=== PATIENT | female | born 1990 | race Caucasian/White ===

== ENCOUNTER 2017-07-18 17:58 | Emergency (ER) | payer OTHER ==
[~2017-07-18] VITALS: Ht 157.5 cm; Wt 81.7 kg
== END 2017-07-18 20:15 | disposition home or self-care (01) ==
LOC: ER 17:58
DX: S61.305A Unspecified open wound of left ring finger with damage to nail, initial encounter (principal); S61.213A Laceration without foreign body of left middle finger without damage to nail, initial encounter; S61.217A Laceration without foreign body of left little finger without damage to nail, initial encounter; S16.1XXA Strain of muscle, fascia and tendon at neck level, initial encounter; S20.312A Abrasion of left front wall of thorax, initial encounter; V49.40XA Driver injured in collision with unspecified motor vehicles in traffic accident, initial encounter
CPT/HCPCS: 72125; 73130

== ENCOUNTER → 2018-01-01 | Outpatient (CLI) | payer SELFPAY ==
[2018-01-06 01:13] LABS: CHLAMYDIA TRACHOMATIS, NAA Negative (Negative); NEISSERIA GONORRHOEAE, NAA Negative (Negative)
== END | disposition home or self-care (01) ==
LOC: LAB 10:16 → LAB SHORT 10:16
PROVIDERS: Obstetrics & Gynecology
DX: Z36.89 Encounter for other specified antenatal screening (principal)
CPT/HCPCS: 87491; 87591; G0123

== ENCOUNTER → 2018-05-06 | Outpatient (CLI) | payer OTHER | END | disposition home or self-care (01) | LOC: LAB 09:45 → LAB SHORT 09:45 | DX: Z34.00 Encounter for supervision of normal first pregnancy, unspecified trimester (principal) | CPT/HCPCS: 87081; 87653 ==

== ENCOUNTER 2018-06-07 19:55 | Inpatient (IN) | payer OTHER ==
[~2018-06-07] VITALS: Ht 167.6 cm; Wt 0.4 kg
[2018-06-07] MEDS ORDERED: Verotin-Gr Cap1 EACH PO (20:16)
[2018-06-07 20:35] LABS: BASOPHILS ABSOLUTE AUTO 0.04 K/mm3 (0.00-0.23); BASOPHILS PERCENT AUTO 0 % (0-2); EOSINOPHILS ABSOLUTE AUTO 0.13 K/mm3 (0.00-0.68); EOSINOPHILS PERCENT AUTO 1 % (0-6); Hematocrit 37.8 % (33.0-51.0); Hemoglobin 13.2 g/dL (11.5-16.0); IMMATURE GRAN ABSOLUTE AUTO 0.09 K/mm3 (0.00-0.10); IMMATURE GRAN PERCENT AUTO 1 % (0-1); LYMPHOCYTES ABSOLUTE AUTO 3.12 K/mm3 (0.84-5.20); LYMPHOCYTES PERCENT AUTO 22 % (21-46); MONOCYTES ABSOLUTE AUTO 1.17 K/mm3 (0.16-1.47); MONOCYTES PERCENT AUTO 8 % (4-13); Mean Corpuscular HGB 30.8 pg (26.0-34.0); Mean Corpuscular HGB Conc 34.9 g/dL (31.5-36.5); Mean Corpuscular Volume 88 fL (80-100); Mean Platelet Volume 9.5 fL (9.1-12.4); NEUTROPHILS ABSOLUTE AUTO 9.35 K/mm3 (1.96-9.15); NEUTROPHILS PERCENT AUTO 67 % (41-73); Platelet Count 283 K/mm3 (150-400); RDW Coefficient Variation 12.6 % (11.7-14.2); RDW Standard Deviation 39.9 fL (35.1-46.3); Red Blood Cell Count 4.29 M/mm3 (3.80-5.20)
[2018-06-09 06:20] LABS: Hematocrit 35.5 % (33.0-51.0); Mean Corpuscular HGB 30.2 pg (26.0-34.0); Mean Corpuscular HGB Conc 33.8 g/dL (31.5-36.5); Mean Corpuscular Volume 89 fL (80-100); Platelet Count 238 K/mm3 (150-400); RDW Coefficient Variation 12.5 % (11.7-14.2); RDW Standard Deviation 40.6 fL (35.1-46.3); Red Blood Cell Count 3.98 M/mm3 (3.80-5.20); White Blood Cell Count 16.15 K/mm3 (4.00-11.30)
[2018-06-09] MEDS ORDERED: IBUP800 PO (19:10)
== END 2018-06-09 19:30 | disposition home or self-care (01) | DRG 807 ==
LOC: OBS 19:55 → BC 20:15
PROVIDERS: ADMIT Obstetrics & Gynecology
PROC: 10E0XZZ Delivery of Products of Conception, External Approach (ICD-10-PCS; principal; 2018-06-08)
PROC: 3E033VJ Introduction of Other Hormone into Peripheral Vein, Percutaneous Approach (ICD-10-PCS; 2018-06-08)
PROC: 10907ZC Drainage of Amniotic Fluid, Therapeutic from Products of Conception, Via Natural or Artificial Opening (ICD-10-PCS; 2018-06-08)
PROC: 6A550ZT Pheresis of Cord Blood Stem Cells, Single (ICD-10-PCS; 2018-06-08)
PROC: 10H07YZ Insertion of Other Device into Products of Conception, Via Natural or Artificial Opening (ICD-10-PCS; 2018-06-08)
PROC: 4A1H7CZ Monitoring of Products of Conception, Cardiac Rate, Via Natural or Artificial Opening (ICD-10-PCS; 2018-06-08)
PROC: 00HU33Z Insertion of Infusion Device into Spinal Canal, Percutaneous Approach (ICD-10-PCS; 2018-06-08)
PROC: 3E0R3BZ Introduction of Anesthetic Agent into Spinal Canal, Percutaneous Approach (ICD-10-PCS; 2018-06-08)
DX: O48.0 Post-term pregnancy (principal); Z37.0 Single live birth; Z3A.41 41 weeks gestation of pregnancy; O69.81X0 Labor and delivery complicated by cord around neck, without compression, not applicable or unspecified; O76 Abnormality in fetal heart rate and rhythm complicating labor and delivery
CPT/HCPCS: 36415; 51702; 85025; 85027; J1885; J2405; J2590; J3010; J7120

== ENCOUNTER → 2022-10-06 | Outpatient (CLI) | payer OTHER ==
[~2022-10-06] MED LIST: IBUP800 PO; Verotin-Gr Cap1 EACH PO
[2022-10-06 11:46] LABS: BASOPHILS ABSOLUTE AUTO 0.06 K/mm3 (0.00-0.23); BASOPHILS PERCENT AUTO 1 % (0-2); EOSINOPHILS ABSOLUTE AUTO 0.24 K/mm3 (0.00-0.68); EOSINOPHILS PERCENT AUTO 3 % (0-6); Hematocrit 42.7 % (33.0-51.0); Hemoglobin 15.4 g/dL (11.5-16.0); IMMATURE GRAN ABSOLUTE AUTO 0.02 K/mm3 (0.00-0.10); IMMATURE GRAN PERCENT AUTO 0 % (0-1); LYMPHOCYTES ABSOLUTE AUTO 2.76 K/mm3 (0.84-5.20); LYMPHOCYTES PERCENT AUTO 32 % (21-46); MONOCYTES ABSOLUTE AUTO 0.49 K/mm3 (0.16-1.47); MONOCYTES PERCENT AUTO 6 % (4-13); Mean Corpuscular HGB 30.7 pg (26.0-34.0); Mean Corpuscular HGB Conc 36.1 g/dL (31.5-36.5); Mean Corpuscular Volume 85 fL (80-100); Mean Platelet Volume 9.1 fL (9.1-12.4); NEUTROPHILS ABSOLUTE AUTO 5.12 K/mm3 (1.96-9.15); NEUTROPHILS PERCENT AUTO 59 % (41-73); Platelet Count 315 K/mm3 (150-400); RDW Coefficient Variation 11.6 % (11.7-14.2); RDW Standard Deviation 35.8 fL (35.1-46.3); Red Blood Cell Count 5.01 M/mm3 (3.80-5.20); White Blood Cell Count 8.69 K/mm3 (4.00-11.30)
[2022-10-06 12:00] LABS: Albumin, Blood 4.2 g/dL (3.4-5.0); Bilirubin, Total 0.6 mg/dL (0.1-1.0); Bun/Creatinine Ratio 11.8 (12.0-20.0); Calcium, Blood 9.2 mg/dL (8.5-10.1); Creatinine, Blood 0.68 mg/dL (0.40-1.00); Globulin, Blood 4.2 g/dL (2.2-4.0); Potassium, Blood 3.7 mmol/L (3.5-5.5); Total Protein, Blood 8.4 g/dL (6.4-8.2)
== END ==
LOC: LAB SHORT 11:41 → LAB 11:41
PROVIDERS: Physician Assistant
DX: R07.9 Chest pain, unspecified (principal)
CPT/HCPCS: 80053; 84484; 85025; 85379

== ENCOUNTER → 2023-12-29 | Outpatient (CLI) | payer OTHER | END | disposition home or self-care (01) | LOC: LAB 09:49 → LAB SHORT 09:49 | DX: O09.523 Supervision of elderly multigravida, third trimester (principal) | CPT/HCPCS: 87081; 87150 ==

== ENCOUNTER 2024-01-21 06:45 | Inpatient (IN) | payer OTHER ==
[2024-01-21] VITALS (59 sets, daily range): BP systolic 125–196; BP diastolic 63–121
[~2024-01-21] VITALS: Ht 167.6 cm; Wt 94.5 kg
[2024-01-21] MEDS ORDERED: OXYTOCIN/RINGER'S LACTATE 500 ML IV SCH ×2 (07:30→22:45)
[2024-01-21] MEDS ORDERED: FentaNYL 2mcg/ml-Bup 0.1% Epd 250 ML EPI PRN (07:30)
[2024-01-21] MEDS ORDERED: Lactated Ringer's 1,000 ML IV SCH ×4 (07:30→22:45)
[2024-01-21] MEDS ORDERED: ePHEDrine Sulfate 50 MG/ML 1ML Injection XX PRN (07:30)
[2024-01-21] MEDS ORDERED: Penicillin G Potassium 5,000,000 UNITS in NS 250 ML IV ONE (07:55)
[2024-01-21 08:17] LABS: BASOPHILS ABSOLUTE AUTO 0.05 K/mm3 (0.00-0.23); BASOPHILS PERCENT AUTO 0 % (0-2); EOSINOPHILS ABSOLUTE AUTO 0.15 K/mm3 (0.00-0.68); EOSINOPHILS PERCENT AUTO 1 % (0-6); Hematocrit 34.9 % (33.0-51.0); Hemoglobin 12.6 g/dL (11.5-16.0); IMMATURE GRAN ABSOLUTE AUTO 0.09 K/mm3 (0.00-0.10); IMMATURE GRAN PERCENT AUTO 1 % (0-1); LYMPHOCYTES ABSOLUTE AUTO 2.61 K/mm3 (0.84-5.20); LYMPHOCYTES PERCENT AUTO 20 % (21-46); MONOCYTES ABSOLUTE AUTO 0.73 K/mm3 (0.16-1.47); MONOCYTES PERCENT AUTO 6 % (4-13); Mean Corpuscular HGB 30.6 pg (26.0-34.0); Mean Corpuscular HGB Conc 36.1 g/dL (31.5-36.5); Mean Corpuscular Volume 85 fL (80-100); NEUTROPHILS ABSOLUTE AUTO 9.36 K/mm3 (1.96-9.15); NEUTROPHILS PERCENT AUTO 72 % (41-73); RDW Coefficient Variation 12.7 % (11.7-14.2); RDW Standard Deviation 38.5 fL (35.1-46.3); Red Blood Cell Count 4.12 M/mm3 (3.80-5.20); White Blood Cell Count 12.99 K/mm3 (4.00-11.30)
[2024-01-21 08:36] LABS: Platelet Count 256 K/mm3 (150-400)
[2024-01-21] MEDS ORDERED: Acetaminophen 500 MG Tab PO PRN ×2 (09:15→22:50)
[2024-01-21] MEDS ORDERED: Misoprostol 200 MCG Tab BC PRN (09:15)
[2024-01-21] MEDS ORDERED: OXYTOCIN/RINGER'S LACTATE 500 ML IV PRN (09:15)
[2024-01-21] MEDS ORDERED: Tranexamic Acid 1,000 MG in NS 100 ML IV SCH (09:15)
[2024-01-21] MEDS ORDERED: Calcium Carbonate 500 MG Tab Chew PO PRN (09:15)
[2024-01-21] MEDS ORDERED: Carboprost Tromethamine 250 MCG/ML 1ML Amp IM PRN ×2 (09:15→22:50)
[2024-01-21] MEDS ORDERED: Methylergonovine Maleate 0.2MG / ML 1ML Amp IM PRN (09:15)
[2024-01-21] MEDS ORDERED: Lactated Ringer's 1,000 ML IV PRN (09:15)
[2024-01-21] MEDS ORDERED: Oxytocin 10 Unit / ML Vial IM PRN (09:15)
[2024-01-21] MEDS ORDERED: Ondansetron HCl 2 MG / ML 2ML Vial IV PRN (09:15)
[2024-01-21] MEDS ORDERED: Misoprostol 200 MCG Tab PR PRN ×2 (09:15→22:45)
[2024-01-21] MEDS ORDERED: FAMO20 PO (09:32)
[2024-01-21] MEDS ORDERED: Celexa20 MG PO (09:34)
[2024-01-21] MEDS ORDERED: Penicillin G Potassium 2,500,000 UNITS in Dextrose 5% 100 ML IV SCH (12:00)
[2024-01-21] MEDS ORDERED: NS 100 ML IV ONE (14:09)
[2024-01-21] MEDS ORDERED: Famotidine 20 MG Tab PO SCH (21:00)
[2024-01-21] MEDS ORDERED: Ketorolac Tromethamine 30mg Vial IV PRN (22:45)
[2024-01-21] MEDS ORDERED: Lanolin Cream TOP PRN (22:45)
[2024-01-21] MEDS ORDERED: Rho(D) Immune Globulin 300 MCG / SYR IM ONE (22:45)
[2024-01-21] MEDS ORDERED: FLU VACC TS2024-25(6MOS UP)/PF 45 MCG/0.5 ML SYRINGE IM ONE (22:50)
[2024-01-21] MEDS ORDERED: Docusate Sodium 100 MG Cap PO PRN (22:50)
[2024-01-21] MEDS ORDERED: Witch Hazel/Glycerin PADS TOP PRN (22:50)
[2024-01-21] MEDS ORDERED: Benzocaine Topical Anesthetic Spray 60GM TOP PRN (22:50)
[2024-01-21] MEDS ORDERED: NIFEdipine 30 MG TabCR PO SCH (23:00)
[2024-01-22] VITALS (7 sets, daily range): BP systolic 130–152; BP diastolic 72–83
[2024-01-22] MEDS ORDERED: Benzocaine/Benzethon Topical Anesthetic Spray 78GM TOP PRN (00:10)
[2024-01-22 06:48] LABS: Hemoglobin 11.7 g/dL (11.5-16.0); Mean Corpuscular HGB 30.9 pg (26.0-34.0); Mean Corpuscular HGB Conc 35.5 g/dL (31.5-36.5); Mean Corpuscular Volume 87 fL (80-100); Mean Platelet Volume 9.4 fL (9.1-12.4); Platelet Count 240 K/mm3 (150-400); RDW Coefficient Variation 12.7 % (11.7-14.2); RDW Standard Deviation 39.8 fL (35.1-46.3); Red Blood Cell Count 3.79 M/mm3 (3.80-5.20); White Blood Cell Count 19.43 K/mm3 (4.00-11.30)
[2024-01-22 07:09] LABS: Albumin, Blood 2.2 g/dL (3.4-5.0); Albumin/Globulin Ratio 0.6 (0.8-1.8); Bilirubin, Total 0.4 mg/dL (0.1-1.0); Bun/Creatinine Ratio 19.5 (12.0-20.0); Calcium, Blood 8.5 mg/dL (8.5-10.1); Creatinine, Blood 0.56 mg/dL (0.40-1.00); Globulin, Blood 3.6 g/dL (2.2-4.0); Potassium, Blood 4.2 mmol/L (3.5-5.5); Total Protein, Blood 5.8 g/dL (6.4-8.2)
[2024-01-22] MEDS ORDERED: Prenatal Vit/FE Fumarate/FA 1 Tab PO SCH (09:00)
[2024-01-22] MEDS ORDERED: Citalopram Hydrobromide 20 MG Tab PO SCH ×2 (09:00→21:05)
[2024-01-22] MEDS ORDERED: NIFEdipine 30 MG TabCR PO SCH (11:30)
--- NOTE | 2024-01-22 14:05 | NUR ---
care management worker ramu major to discuss depression screen with patient. patient feels stable on celexa and would like to get established back with pcp when she sees dr beck for her ppfu appt.
[2024-01-22] MEDS ORDERED: ACET500 PO (14:07)
[2024-01-22] MEDS ORDERED: IBU800 MG PO (14:07)
[2024-01-22] MEDS ORDERED: DOCU100 PO (14:07)
[2024-01-22] MEDS ORDERED: NIFE30ER PO (14:09)
[2024-01-22] MEDS ORDERED: Ibuprofen 400 MG Tab PO PRN (23:00)
[2024-01-23 00:15] VITALS: BP 137/79
[2024-01-23 05:23] VITALS: BP 131/88
[2024-01-23 07:46] VITALS: BP 137/85
== END 2024-01-23 09:40 | disposition home or self-care (01) | DRG 806 ==
LOC: OBS 06:45 → BC 06:48 → OBS 06:57 → BC 06:59
PROVIDERS: ADMIT Obstetrics & Gynecology
PROC: 10E0XZZ Delivery of Products of Conception, External Approach (ICD-10-PCS; principal; 2024-01-21)
PROC: 0KQM0ZZ Repair Perineum Muscle, Open Approach (ICD-10-PCS; 2024-01-21)
PROC: 3E033VJ Introduction of Other Hormone into Peripheral Vein, Percutaneous Approach (ICD-10-PCS; 2024-01-21)
PROC: 3E0R3BZ Introduction of Anesthetic Agent into Spinal Canal, Percutaneous Approach (ICD-10-PCS; 2024-01-21)
PROC: 00HU33Z Insertion of Infusion Device into Spinal Canal, Percutaneous Approach (ICD-10-PCS; 2024-01-21)
PROC: 0UQMXZZ Repair Vulva, External Approach (ICD-10-PCS; 2024-01-21)
DX: O99.344 Other mental disorders complicating childbirth (principal); O99.324 Drug use complicating childbirth; Z37.0 Single live birth; O99.824 Streptococcus B carrier state complicating childbirth; O13.4 Gestational [pregnancy-induced] hypertension without significant proteinuria, complicating childbirth; Z3A.39 39 weeks gestation of pregnancy; O69.81X0 Labor and delivery complicated by cord around neck, without compression, not applicable or unspecified; F12.90 Cannabis use, unspecified, uncomplicated; F41.8 Other specified anxiety disorders; Z98.890 Other specified postprocedural states; O70.1 Second degree perineal laceration during delivery
CPT/HCPCS: 36415; 51702; 80053; 85025; 85027; 86850; 86900; 86901; A9270; J1885; J2405; J2540; J2590; J7050; J7120

== ENCOUNTER → 2024-03-09 | Outpatient (CLI) | payer OTHER ==
[~2024-03-09] MED LIST changes: +ACET500 PO; +Celexa20 MG PO; +DOCU100 PO; +FAMO20 PO; +IBU800 MG PO; +NIFE30ER PO
[2024-03-18 15:36] LABS: HPV GENOTYPE 16 BY TMA Not Detected; HPV GENOTYPE 18/45 BY TMA Not Detected; HPV HIGH RISK BY TMA Detected; HPV SOURCE Cervical; HPVG SOURCE Cervical
== END | disposition home or self-care (01) ==
LOC: LAB 12:36 → LAB SHORT 12:36
PROVIDERS: Obstetrics & Gynecology
DX: R87.613 High grade squamous intraepithelial lesion on cytologic smear of cervix (HGSIL) (principal); R87.810 Cervical high risk human papillomavirus (HPV) DNA test positive
CPT/HCPCS: 87624; 87625; G0123

== ENCOUNTER → 2024-05-05 | Outpatient (CLI) | payer OTHER | LOC: LAB 11:40 → LAB SHORT 11:40 → PLD 11:40 | DX: R87.610 Atypical squamous cells of undetermined significance on cytologic smear of cervix (ASC-US) (principal); R87.810 Cervical high risk human papillomavirus (HPV) DNA test positive | CPT/HCPCS: 88305 ==

== ENCOUNTER → 2024-11-15 | Outpatient (CLI) | payer OTHER ==
[2024-11-15 09:06] LABS: BASOPHILS ABSOLUTE AUTO 0.07 K/mm3 (0.00-0.23); BASOPHILS PERCENT AUTO 1 % (0-2); EOSINOPHILS ABSOLUTE AUTO 0.44 K/mm3 (0.00-0.68); EOSINOPHILS PERCENT AUTO 5 % (0-6); Hematocrit 40.0 % (33.0-51.0); Hemoglobin 14.0 g/dL (11.5-16.0); IMMATURE GRAN ABSOLUTE AUTO 0.02 K/mm3 (0.00-0.10); IMMATURE GRAN PERCENT AUTO 0 % (0-1); LYMPHOCYTES ABSOLUTE AUTO 2.96 K/mm3 (0.84-5.20); LYMPHOCYTES PERCENT AUTO 32 % (21-46); MONOCYTES ABSOLUTE AUTO 0.76 K/mm3 (0.16-1.47); MONOCYTES PERCENT AUTO 8 % (4-13); Mean Corpuscular HGB Conc 35.0 g/dL (31.5-36.5); Mean Corpuscular Volume 87 fL (80-100); NEUTROPHILS ABSOLUTE AUTO 5.00 K/mm3 (1.96-9.15); NEUTROPHILS PERCENT AUTO 54 % (41-73); NRBC ABSOLUTE 0.00 K/mm3 (0.00-0.02); NRBC Auto 0.0 /100 WBC (0.0-0.2); Platelet Count 283 K/mm3 (150-400); RDW Coefficient Variation 11.9 % (11.7-14.2); RDW Standard Deviation 37.4 fL (35.1-46.3)
[2024-11-15 09:18] LABS: Alanine Aminotransfer (ALT/SGP 59.0 U/L (12-78); Albumin, Blood 4.1 g/dL (3.4-5.0); Albumin/Globulin Ratio 1.1 (0.8-1.8); Anion Gap 13.0 mmol/L (3-11); Aspartate Aminotrans (AST/SGOT 33.0 U/L (12-37); Bilirubin, Total 0.6 mg/dL (0.1-1.0); Blood Urea Nitrogen 10.0 mg/dL (8-24); CO2, Blood 29.0 mmol/L (21-32); Calcium, Blood 8.9 mg/dL (8.5-10.1); Chloride, Blood 102.0 mmol/L (98-108); Creatinine, Blood 0.66 mg/dL (0.40-1.00); Globulin, Blood 3.9 g/dL (2.2-4.0); Glucose, Blood 98.0 mg/dL (70-99); Potassium, Blood 4.2 mmol/L (3.5-5.5); Sodium, Blood 140.0 mmol/L (136-145); Total Protein, Blood 8.0 g/dL (6.4-8.2)
== END ==
LOC: LAB 09:03 → LAB SHORT 09:03
PROVIDERS: Chiropractor
DX: R10.84 Generalized abdominal pain (principal)
CPT/HCPCS: 80053; 83690; 85025

== ENCOUNTER → 2024-11-18 | Outpatient (CLI) | payer OTHER | LOC: LAB SHORT 10:54 → LAB 10:54 | DX: K29.70 Gastritis, unspecified, without bleeding (principal) | CPT/HCPCS: 87338 ==